=== PATIENT | male | born 1965 | race Caucasian/White ===

== ENCOUNTER 2016-12-24 14:58 | Emergency (ER) | payer BC, OTHER ==
[2016-12-24 15:23] VITALS: BP 161/92
--- NOTE | 2016-12-24 15:37 | UC ---
Throat Pain/Nasal Jarod HPI - HPI Summary HPI Summary: complaint of nasal congestion and cough that started 2 weeks ago feels he is wheezing at times cough is somtimes productive , worse at night frequent headaches and sneezing sinus pressure in his forehead denies fever but has had chills, fatigued taking mucinex without much relief denies shortness of breath, chest pain - History of Current Complaint Chief Complaint: UCRespiratory Stated Complaint: UPPER RESPIRATORY Time Seen by Provider: 12/24/16 15:31 Hx Obtained From: Patient - Allergies/Home Medications Allergies/Adverse Reactions: Allergies Allergy/AdvReac Type Severity Reaction Status Date / Time hay fever Allergy Congestion Uncoded 12/24/16 15:11 Home Medications: Home Medications Pseudoephedrine-Guaifenesin [Mucinex D 60-600 mg] 1 tab PO BID 12/24/16 [ History Confirmed 12/24/16] PMH/Surg Hx/FS Hx/Imm Hx Previously Healthy: Yes Endocrine History Of: Denies: Diabetes Cardiovascular History Of: Reports: Hypertension - ON MEDS Denies: Pacemaker/ICD Respiratory History Of: Reports: Asthma - CHILD, Bronchitis - OVER 1O YEARS AGO GI/ History Of: Denies: Renal Disease - Surgical History Surgical History: Yes Surgery Procedure, Year, and Place: Tonsillectomy. 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 RIGHT TOTAL HIP 08/2016 - Family History Known Family History: Positive: Hypertension - father Negative: Cardiac Disease, Diabetes - Social History Occupation: Employed Full-time Lives: With Family Alcohol Use: Weekly Alcohol Amount: 4-5 kirti Substance Use Type: None Smoking Status (MU): Never Smoked Tobacco - Immunization History Most Recent Influenza Vaccination: 2015 Most Recent Tetanus Shot: 03/2015 Most Recent Pneumonia Vaccination: NONE Review of Systems Constitutional: Chills, Fatigue Skin: Negative Eyes: Negative ENT: Nasal Discharge Respiratory: Cough Cardiovascular: Negative Gastrointestinal: Negative Genitourinary: Negative Motor: Negative Neurovascular: Negative Musculoskeletal: Negative Neurological: Negative Psychological: Negative All Other Systems Reviewed And Are Negative: Yes Physical Exam Triage Information Reviewed: Yes Appearance: No Pain Distress, Well-Nourished, Obese Vital Signs: Initial Vital Signs Temp 96.9 F 12/24/16 15:04 Pulse 71 12/24/16 15:04 Resp 18 12/24/16 15:04 BP 161/92 12/24/16 15:04 Pulse Ox 97 12/24/16 15:04 Vital Signs Reviewed: Yes ENT: Positive: Pharyngeal erythema, Nasal congestion, Nasal drainage, TMs normal , Other: - maxillary sinus tenderness Neck: Positive: No Lymphadenopathy Respiratory: Positive: No respiratory distress, No accessory muscle use, Decreased breath sounds - in the bases , Cardiovascular: Positive: RRR, No Murmur, Pulses Normal Abdomen Description: Positive: Nontender, Soft Bowel Sounds: Positive: Present Musculoskeletal: Positive: No Edema Neurological: Positive: Alert Psychological Exam: Normal Skin Exam: Normal Throat Pain/Nasal Course/Dx - Course Course Of Treatment: exam completed. chest x-ray shows no acute process. will treat for sinusitis/bronchitis with augmenting and albuterol- followup with PCP - Differential Dx/Diagnosis Differential Diagnosis/HQI/PQRI: Sinusitis, URI, Other - bronchitis, pneumonia Provider Diagnoses: sinusitis, bronchitis Discharge - Discharge Plan Condition: Stable Disposition: HOME Prescriptions: Albuterol HFA INHALER* [Ventolin HFA Inhaler*] 2 puff INH Q4H PRN #1 mdi PRN Reason: Cough Amoxicillin/Clavulanate TAB* [Augmentin TAB 875*] 875 mg PO BID #20 tab Patient Education Materials: Sinusitis (ED), Bronchospasm (ED), Acute Bronchitis (ED) Referrals: Rajan Turk [Primary Care Provider] - Additional Instructions: Please take antibiotic as directed Use your albuterol inhaler every 4-6 hours when needed for wheezing, shortness of breath or uncontrolled coughing. Increase fluids and rest Take acetaminophen or ibuprofen for fever or pain Please review your discharge instructions. If your symptoms do not improve please call your primary care provider or return to urgent care. Your blood pressure is elevated. Please contact your primary care provider within 1 day -4 weeks for further evaluation.
--- NOTE | 2016-12-24 16:13 | RAD ---
Indication: Cough. 2 views of the chest demonstrate no mediastinal shift. Heart is of normal size and configuration. Lung srinivasan are clear. When compared to previous exam of June 08, 2016 no significant change is noted. IMPRESSION: No active cardiopulmonary disease is noted.
== END 2016-12-24 16:35 | disposition home or self-care (01) ==
LOC: UCCORT 14:58
DX: J32.9 Chronic sinusitis, unspecified (principal); J40 Bronchitis, not specified as acute or chronic; I10 Essential (primary) hypertension; E66.9 Obesity, unspecified; Z96.643 Presence of artificial hip joint, bilateral
CPT/HCPCS: 71020; 99212; G0463

== ENCOUNTER 2023-08-09 06:56 | Observation (INO) ==
[~2023-08-09 06:56] MED LIST: Buffered Lidocaine 1% SYRIN 1 ml INTRADERM ONE; Lactated Ringers 1000 ml BAG 1,000 ML IV SCH; Naloxone 0.4 mg VIAL 0.4 mg/ml 1 ml VIAL IV PRN; Ondansetron 4 mg VIAL 2 MG/ML 2 ml VIAL IV PRN; fentaNYL 100 mcg/2 ml 50 MCG/ML VIAL IV PRN
[2023-08-09] MEDS ORDERED: ceFAZolin 2 GM PREMIX 2 GM/50 ML BAG ONE (07:42)
[2023-08-09 07:51] LABS: Rapid COVID-19 Molecular Undetected (Undetected)
[2023-08-09] MEDS ORDERED: Midazolam 5 mg/5 ml VIAL 1 mg/ml 5 ml VIAL (5 mg) ONE (08:33)
[2023-08-09] MEDS ORDERED: Midazolam 2 mg/2 ml VIAL 1 mg/ml 2 ml VIAL (2 mg) ONE (08:33)
[2023-08-09] MEDS ORDERED: Dexamethasone IV 4 MG/ML VIAL 1 ml VIAL ONE ×2 (08:34→10:43)
[2023-08-09] MEDS ORDERED: ROPIVACAINE 5 MG/ML 30 ML BTL (0.5%) ONE ×2 (08:34→10:32)
[2023-08-09] MEDS ORDERED: Propofol 10 MG/ML 20 ML BTL ONE ×2 (08:36→08:40)
[2023-08-09] MEDS ORDERED: Lidocaine 2% PF 5 ML VIAL ONE (08:37)
[2023-08-09] MEDS ORDERED: fentaNYL 100 mcg/2 ml 50 MCG/ML VIAL ONE ×2 (08:38→10:13)
[2023-08-09] MEDS ORDERED: Tranexamic Acid 1,000 MG/10 ML SDV ONE (10:31)
[2023-08-09] MEDS ORDERED: Lactulose 30 ml UDC PO PRN (12:54)
[2023-08-09] MEDS ORDERED: Magnesium Hydroxide LIQ 30 ML UDC PO PRN (12:54)
[2023-08-09] MEDS ORDERED: Ondansetron ODT 4 mg TAB 4 MG TAB PO PRN (12:54)
[2023-08-09] MEDS ORDERED: Morphine 2 MG/ML SYRINGE IV PRN (12:54)
[2023-08-09] MEDS ORDERED: Ondansetron 4 mg VIAL 2 MG/ML 2 ml VIAL IV PRN (12:54)
[2023-08-09] MEDS: Lactated Ringers 1000 ml BAG 1,000 ML IV SCH (16:00)
[2023-08-09] MEDS: ceFAZolin 1 GM in Dextrose 1 GM/50 ML BAG IV SCH (19:31)
[2023-08-09] MEDS ORDERED: Aspirin EC 81 mg TAB.EC (enteric coated) PO SCH (21:00)
[2023-08-09] MEDS: oxyCODONE SR 20 mg TAB PO SCH (21:23)
[2023-08-09] MEDS: Magnesium Hydroxide LIQ 30 ML UDC PO SCH (21:25)
[2023-08-10] MEDS: Lactated Ringers 1000 ml BAG 1,000 ML IV SCH (02:27)
[2023-08-10] MEDS: ceFAZolin 1 GM in Dextrose 1 GM/50 ML BAG IV SCH ×2 (02:27→10:29)
[2023-08-10 06:32] LABS: Platelet Count 211 10^3/uL (150-450)
[2023-08-10 06:51] LABS: Creatinine, Serum 1.09 mg/dL (0.67-1.17); Potassium 4.1 mmol/L (3.5-5.0); eGFR CKD-EPI 79.2 (>60)
[2023-08-10 06:59] LABS: Hematocrit 33.6 % (38-53); Mean Platelet Volume 8.1 fL (7.5-11.2)
[2023-08-10] MEDS: oxyCODONE SR 20 mg TAB PO SCH (08:23)
[2023-08-10] MEDS: Magnesium Hydroxide LIQ 30 ML UDC PO SCH (08:24)
[2023-08-10] MEDS ORDERED: Vitamin THERAPEUTIC TAB PO SCH (09:00)
[2023-08-10] MEDS ORDERED: Influenza vaccine *QUAD* *2023-24* 0.5 ML SYRINGE IM ONE (09:00)
[2023-08-10] MEDS ORDERED: Pneumococcal Vac 23-Polyvalent IM ONE (09:00)
[2023-08-10 10:41] VITALS: BP 159/72
== END 2023-08-10 14:15 | disposition home or self-care (01) ==
LOC: INTOOBSV 06:56 → AA 06:56 → SSU 15:58
PROVIDERS: ADMIT Orthopaedic Surgery Adult Reconstructive Orthopaedic Surgery; ATTEND Orthopaedic Surgery Adult Reconstructive Orthopaedic Surgery